=== PATIENT | female | born 1980 | race Caucasian/White ===

== ENCOUNTER 2016-08-14 18:40 | Emergency (ER) | payer MEDICAID ==
[2016-08-14] MEDS ORDERED: HYDROcod/ACETAM 5/325 MG TABLET PO STA (18:52)
[2016-08-14] MEDS ORDERED: HYDROcod/ACETAM 5/325 MG TABLET ONE (18:54)
== END 2016-08-14 20:05 | disposition home or self-care (01) ==
DX: S93.402A Sprain of unspecified ligament of left ankle, initial encounter (principal); W01.0XXA Fall on same level from slipping, tripping and stumbling without subsequent striking against object, initial encounter; R03.0 Elevated blood-pressure reading, without diagnosis of hypertension; G47.30 Sleep apnea, unspecified; K21.9 Gastro-esophageal reflux disease without esophagitis
CPT/HCPCS: 73610; 99283; A9270

== ENCOUNTER 2017-04-12 13:27 | Outpatient (CLI) | payer MEDICAID ==
[2017-04-12 20:04] LABS: BASOPHILS % (AUTO) 0.5 %; EOSINOPHILS # (AUTO) 0.1 10^3/uL (0.0-0.7); EOSINOPHILS % (AUTO) 0.6 %; HGB - HEMOGLOBIN 14.6 g/dL (12.0-16.0); LYMPHOCYTES # (AUTO) 2.6 10^3/uL (1.5-3.5); LYMPHOCYTES % (AUTO) 25.2 %; MEAN CORPUSCULAR HEMOGLOBIN 28.6 pg (27.0-31.0); MEAN CORPUSCULAR HGB CONC 32.4 g/dL (32.0-36.0); MEAN CORPUSCULAR VOLUME 88.3 fL (81.0-99.0); MEAN PLATELET VOLUME 8.9 fL (7.9-10.8); MONOCYTES # (AUTO) 0.6 10^3/uL (0.0-1.0); MONOCYTES % (AUTO) 6.2 %; NEUTROPHILS # (AUTO) 6.9 10^3/uL (1.5-6.6); NEUTROPHILS % (AUTO) 67.5 %; PLT - PLATELET COUNT 213 10^3/uL (130-450); WHITE BLOOD COUNT 10.2 x10^3/uL (4.8-10.8)
[2017-04-12 20:31] LABS: ALBUMIN 4.2 g/dL (3.2-5.5); ALBUMIN/GLOBULIN RATIO 1.5 (1.0-2.2); ALKALINE PHOSPHATASE 63 IU/L (42-121); ALT ALANINE AMINOTRANSFERASE 14 IU/L (10-60); AST ASPARTATE AMINOTRANSFERASE 16 IU/L (10-42); BILIRUBIN,TOTAL 0.5 mg/dL (0.2-1.0); BUN - BLOOD UREA NITROGEN 12 mg/dL (6-20); CALCIUM 8.4 mg/dL (8.5-10.3); CARBON DIOXIDE - CO2 20 mmol/L (21-32); CHLORIDE 105 mmol/L (101-111); CHOL/HDL RATIO 2.9 (<4.4); CHOLESTEROL 155 mg/dL; CREATININE 0.8 mg/dL (0.4-1.0); GFR - MDRD 81 (>89); GLUCOSE 94 mg/dL (70-100); HDL CHOLESTEROL 53 mg/dL; LDL CHOLESTEROL,CALCULATED 81 mg/dL; LDL/HDL RATIO 1.5 (<4.4); SODIUM 136 mmol/L (135-145); VLDL CHOLESTEROL 21 mg/dL
== END 2017-04-12 13:28 | disposition home or self-care (01) ==
LOC: LAB.N 13:27
PROVIDERS: ATTEND Family Medicine
DX: E78.5 Hyperlipidemia, unspecified (principal); F41.9 Anxiety disorder, unspecified; G43.909 Migraine, unspecified, not intractable, without status migrainosus
CPT/HCPCS: 36415; 80053; 80061; 85025

== ENCOUNTER 2018-10-01 11:08 | Outpatient (CLI) | payer MEDICAID | END 2018-10-01 11:09 | disposition short-term general hospital (02) | LOC: EMS 11:08 | PROVIDERS: ATTEND Surgery | DX: O26.92 Pregnancy related conditions, unspecified, second trimester (principal); Z3A.22 22 weeks gestation of pregnancy | CPT/HCPCS: A0425; A0429; A0999 ==

== ENCOUNTER 2022-01-02 18:32 | Emergency (ER) | payer MEDICAID ==
[2022-01-02 18:45] VITALS: BP 147/89
--- NOTE | 2022-01-02 18:53 | ED Physician Documentation ---
History of Present Illness - Stated complaint Stated Complaint: HIGH BP - Chief complaint Chief Complaint: General - History obtained from History obtained from: Patient - History of Present Illness Timing: Today Pain level max: 0 Pain level now: 0 - Additonal information Additional information: 41-year-old female approximately 35 weeks presents for elevated blood pressures at home. She is followed at the [facility] for her . She was apparently supposed to be registered as a OB patient but was registered as an ED patient accidentally. Review of Systems Constitutional: denies: Fever PD PAST MEDICAL HISTORY - Past Medical History Past Medical History: Yes Cardiovascular: None Respiratory: Sleep apnea, CPAP use Endocrine/Autoimmune: None GI: GERD : None HEENT: None Psych: Anxiety Musculoskeletal: None Derm: Eczema - Past Surgical History HEENT: Tonsil/Adenoidectomy - Present Medications Home Medications: Ambulatory Orders Medication Instructions Recorded Confirmed Omeprazole [PriLOSEC] 20 mg PO DAILY 09/02/12 01/02/22 Labetalol [Trandate] 100 mg PO BID 01/02/22 01/02/22 Omeprazole Magnesium 20 mg PO DAILY 01/02/22 01/02/22 Progesterone, Micronized 200 mg .ROUTE HS 01/02/22 01/02/22 [Prometrium] metFORMIN [Glucophage] 1,000 mg PO BIDWM 01/02/22 01/02/22 - Allergies Allergies/Adverse Reactions: Allergies Allergy/AdvReac Type Severity Reaction Status Date / Time morphine Allergy Intermediate Hives Verified 01/02/22 18:38 Sulfa (Sulfonamide Allergy Intermediate Hives Verified 01/02/22 18:38 Antibiotics) - Social History Does the pt smoke?: No Smoking Status: Never smoker PD ED PE NORMAL - Vitals Vital signs reviewed: Yes - General General: Alert and oriented X 3, No acute distress - Derm Derm: Warm and dry - Neuro Neuro: Alert and oriented X 3 Results - Vitals Vitals: Vital Signs - 24 hr 01/02/22 18:38 Temperature 36.5 C Heart Rate 99 Respiratory 22 Rate Blood Pressure 147/89 H O2 Saturation 97 Oxygen O2 Source Room air PD MEDICAL DECISION MAKING - ED course Complexity details: considered differential ED course: Discussed the case with Dr. Rothman, OB. We will send the patient to OB for further care of her preeclampsia. This document was made in part using voice recognition software. While efforts are made to proofread this document, sound alike and grammatical errors may occur. Departure - Departure Disposition: 01 Home, Self Care Clinical Impression: Pre-eclampsia Qualifiers: Trimester: third trimester Qualified Code(s): O14.93 - Unspecified pre- eclampsia, third trimester Condition: Stable Comments: Patient was sent directly to OB
== END 2022-01-02 19:18 | disposition home or self-care (01) ==
LOC: ED 18:32
DX: O14.93 Unspecified pre-eclampsia, third trimester (principal); Z3A.35 35 weeks gestation of pregnancy
CPT/HCPCS: 99281; 99282

== ENCOUNTER 2022-01-02 18:55 | Outpatient (CLI) | payer MEDICAID ==
--- NOTE | 2022-01-02 19:25 | PROVIDER PROGRESS NOTE ---
- HPI Chief Complaint: Hypertension/PIH Current : Vital Signs Temperature 98.8 F 01/02/22 19:11 Heart Rate 95 01/02/22 19:11 Respiratory Rate 24 01/02/22 19:11 Blood Pressure 139/66 H 01/02/22 19:11 O2 Saturation 99 01/02/22 19:11 - Procedures OB Procedure Performed: NST Diagnosis/Indication for NST: Gestational Hypertension NST Procedure: NST Procedure Start Date 01/02/22 Start Time 19:10 Stop Time 20:10 Vibroacoustic Stimulation Used No Patient States Movement Yes Service Date of procedure: 01/02/22 (Read 01/02/2022) - Plan Plan: Patient is a 41-year-old -4-1-4 At 35 weeks 2 days gestation by 20-week ultrasound (JENNIFER: 02/04/2022) presenting to triage for elevated blood pressure. She developed preeclampsia and was started on labetalol, currently 100 mg 3 times daily. Blood pressure up to the 140s over 100s at home and she was asked to come in. Blood pressures here in the 130s-140s/60s-70s. Did have a protein creatinine ratio of 0.7 previously. Serum labs were within normal limits. She has good movement, no leaking, no vaginal bleeding. She denies headache, right upper quadrant pain, changes in vision. Denies dysuria. She is seen by [facility] and gets her care there for high risk . She has had multiple cerclages previously, and she says this is the first one that has held. Does have significant lower extremity edema has been gone for several weeks. On review of records, had a recent venous Doppler that showed no DVTs. Has had swelling with each , but never this severe. Patient denies other issues, however review of records shows she has gestational diabetes taking metformin 1000 mg twice daily. OB history: -4-1-1 1. 2002, 18 weeks 5 days, spontaneous previable delivery 2. 2003, 24 weeks 0 days, 3. 2005, 22 weeks 0 days, 4. 2007, 21 weeks 0 days, , chorioamnionitis 5. 2018, 23 weeks 0 days, classical section 6. Current Past medical history Denies significant medical history, however upon review rest periods has a following history Bipolar disorder History of traumatic brain injury History of marijuana use Vulvovaginal HSV GBS strep carrier Gestational diabetes Past surgical history Cervical conization section Cervical cerclage Family history Noncontributory Social history Smokes 1/2 pack/day, denies alcohol or drugs Allergies: Sulfa Morphine Adhesives Latex Medications: vitamins Labetalol 100 mg 3 times daily Metformin 1000 mg twice daily Progesterone 200 mg vaginally Physical Constitutional: alert, no acute distress, well hydrated, well developed, well nourished, appropriate dress. Cardiovascular: Regular rate and rhythm. Respiratory: Easily short of breath. Inspiratory and expiratory wheezes. Abdomen: abdominal striae with edema. Gravid, nontender, no guarding. Psych: affect and mood appropriate, normal interaction, good eye contact. Extremities: 2+ pitting edema bilaterally NST: 145 bpm baseline, moderate variability, accelerations present, no decelerations. [place]: Quiescent Labs: AST/ALT: 17/19, platelets: 217, creatinine: 0.5, protein/creatinine: 0.2 Assessment and plan 41-year-old -4-1-4 with gestational hypertension 1. Preeclampsia: -Blood pressure non-severe. Labs within normal limits, however slightly elevated protein creatinine ratio 0.2, but below threshold. Previously 0.7 at her primary OB provider. No symptoms of worsening preeclampsia. 2. 35 weeks gestation -Has appointment at [facility] tomorrow. Says she has a 36-week scheduled section scheduled next week 3. Lower extremity edema -Significant lower extremity edema, has been present for several weeks. Extends to her abdomen and her striae. Not a new symptom for her. -Had bilateral venous Dopplers on 12/27/21 without DVT. 4. Tobacco abuse -Has cut back, but still smoking approximately 1/2 pack/day 5. Cervical incompetence -Cerclage in place 6. Obesity 7. Elderly multigravida 8. Vulvovaginal HSV 9. A2 GDM managed with oral antihyperglycemic's -On home oral metformin 1000 mg twice daily 10. GBS carrier -UA shows some bacteria. We will follow-up on culture. Asymptomatic. 11.Previous vertical section x1 -Repeat section scheduled next week. No contractions. Cerclage in place.
[2022-01-02 19:32] LABS: HCT - HEMATOCRIT 29.6 % (37.0-47.0); HGB - HEMOGLOBIN 9.6 g/dL (12.0-16.0); MEAN CORPUSCULAR HEMOGLOBIN 26.9 pg (27.0-31.0); MEAN CORPUSCULAR HGB CONC 32.4 g/dL (32.0-36.0); MEAN CORPUSCULAR VOLUME 82.9 fL (81.0-99.0); MEAN PLATELET VOLUME 9.9 fL (7.9-10.8); RED BLOOD COUNT 3.57 10^6/uL (4.20-5.40); RED CELL DISTRIBUTION WIDTH 14.7 % (12.0-15.0); WHITE BLOOD COUNT 14.2 x10^3/uL (4.8-10.8)
[2022-01-02 19:49] LABS: ALBUMIN 2.5 g/dL (3.2-5.5); ALBUMIN/GLOBULIN RATIO 0.8 (1.0-2.2); BILIRUBIN,TOTAL 0.2 mg/dL (0.2-1.0); CALCIUM 8.8 mg/dL (8.5-10.3); CREATININE 0.5 mg/dL (0.4-1.0); POTASSIUM 3.9 mmol/L (3.5-5.0); TOTAL PROTEIN 5.8 g/dL (6.7-8.2)
[2022-01-02 20:13] LABS: BILIRUBIN,URINE NEGATIVE (NEGATIVE); GLUCOSE, URINE (UA) NEGATIVE (NEGATIVE); KETONES,URINE (UA) NEGATIVE (NEGATIVE); LEUKOCYTE ESTERASE, URINE LARGE (NEGATIVE); NITRITE,URINE NEGATIVE (NEGATIVE); OCCULT BLOOD,URINE TRACE-INTA (NEGATIVE); PROTEIN,URINE NEGATIVE (NEGATIVE); UROBILINOGEN,URINE 0.2 (NORMAL) E.U./dL (NORMAL)
[2022-01-02 20:14] LABS: CLARITY,URINE HAZY (CLEAR); RBC,URINE 0-5 /HPF (0-5); SQUAMOUS EPITHELIAL CELL,UR FEW Squamous (<= Few); WBC,URINE >25 /HPF (0-5)
[2022-01-02 20:15] LABS: BACTERIA,URINE Many /HPF (None Seen); CREATININE,URINE 103.8 mg/dL; PROTEIN/CREATININE RATIO,URINE 0.2 (<=0.2)
[2022-01-02 20:42] VITALS: BP 131/64
== END 2022-01-02 20:50 | disposition home or self-care (01) ==
LOC: WFO 18:55 → FBP 18:58 → WFO 20:50
PROVIDERS: ATTEND Obstetrics & Gynecology
DX: O14.03 Mild to moderate pre-eclampsia, third trimester (principal); Z3A.35 35 weeks gestation of pregnancy; O99.333 Smoking (tobacco) complicating pregnancy, third trimester; F17.210 Nicotine dependence, cigarettes, uncomplicated; O12.03 Gestational edema, third trimester; O34.33 Maternal care for cervical incompetence, third trimester; O99.820 Streptococcus B carrier state complicating pregnancy; O24.415 Gestational diabetes mellitus in pregnancy, controlled by oral hypoglycemic drugs; O98.313 Other infections with a predominantly sexual mode of transmission complicating pregnancy, third trimester; A60.04 Herpesviral vulvovaginitis; O99.343 Other mental disorders complicating pregnancy, third trimester; F31.9 Bipolar disorder, unspecified; O99.213 Obesity complicating pregnancy, third trimester; O09.523 Supervision of elderly multigravida, third trimester; O34.219 Maternal care for unspecified type scar from previous cesarean delivery
CPT/HCPCS: 36415; 59025; 80053; 81001; 82570; 84156; 85027; 87086; 99215

== ENCOUNTER 2022-01-04 07:49 | Outpatient (CLI) | payer MEDICAID | END 2022-01-04 07:50 | disposition critical access hospital (66) | LOC: EMS 07:49 | DX: O60.00 Preterm labor without delivery, unspecified trimester (principal) | CPT/HCPCS: A0425; A0429; A0999 ==

== ENCOUNTER 2022-01-04 08:10 | Inpatient (IN) | payer MEDICAID ==
--- NOTE | 2022-01-04 08:27 | HISTORY & PHYSICAL EXAMINATION ---
Admit History - Visit Reason Visit Reason: Contractions, Membranes rupture - : 6 Premature: 4 : 1 Care: positive: Other ([facility]) Complications This : positive: Treated for GBS/UTI, Gestational diabetes, Pre-eclampsia Smoking Status: Current every day smoker - Mother's Labs Mother's Blood Type: positive: O Mother's RH: positive: Positive GBS: positive: Group B Strep Positive - Other Maternal History Other Maternal History: Patient is a 41-year-old -4-1-1 at 35 weeks 4 days gestation by 20-week ultrasound (JENNIFER: 02/04/2022) who presents today with leaking of fluid and contractions. She does get her care at [facility]. She said she woke up earlier this morning and stood up and had a leak of fluid. She believes this was around 0700. She is having contractions every several minutes although she is not timing them. Does have a cerclage in place for history of multiple deliveries. complicated by preeclampsia without severe features and is taking labetalol, currently 100 mg 3 times daily. Also has gestational diabetes managed with metformin 1000 mg twice daily. She does not take any medications this morning. Blood pressures have been nonsevere. Denies headache, vision changes, right upper quadrant pain. No vaginal bleeding. OB history: -4-1-1 1. 2002, 18 weeks 5 days, spontaneous previable delivery 2. 2003, 24 weeks 0 days, 3. 2005, 22 weeks 0 days, 4. 2007, 21 weeks 0 days, , chorioamnionitis 5. 2018, 23 weeks 0 days, classical section 6. Current Past medical history Bipolar disorder History of traumatic brain injury History of marijuana use Vulvovaginal HSV GBS strep carrier Gestational diabetes Past surgical history Cervical conization section Cervical cerclage Family history Noncontributory Social history Smokes 1/2 pack/day, denies alcohol or drugs Allergies: Sulfa Morphine Adhesives Latex Medications: vitamins Labetalol 100 mg 3 times daily Metformin 1000 mg twice daily Progesterone 200 mg vaginally Physical Constitutional: alert, no acute distress, well hydrated, well developed, well nourished, appropriate dress. Cardiovascular: Regular rate and rhythm. Respiratory: Easily short of breath. Inspiratory and expiratory wheezes. Abdomen: abdominal striae with edema. Gravid, nontender, no guarding. Psych: affect and mood appropriate, normal interaction, good eye contact. Extremities: 2+ pitting edema bilaterally n SVE: Fingertip (Cerclage palpated near distal cervix)/50/ -3 FHT:135 bpm baseline, moderate variability, accelerations preent, no decelerations [place]:Every 5-6 minutes Labs: Platelets: 245, AST/ALT: 19/19, Creatinine: 0.5, Protein to creatinine ratio: 0.2. ROM plus: Negative Assessment and plan 41-year-old -4-1-1 with labor 1. labor -Currently michael approximately every 5-6 minutes. Should move to delivery. -Spoke with [facility] regarding tocolysis and transport vs here. Will plan on performing repeat locally. High likelihood of transport. -Category 1 tracing 2.Previous classical section x1 -Plan for repeat section -3 grams cefazolin 3. Preeclampsia without severe features: -Blood pressure non-severe. Will give AM dose of labetolol. -Labs within normal limits 4. 35 weeks gestation -Will hold late steroids due to gestational diabetes 5. Lower extremity edema -Significant lower extremity edema, has been present for several weeks. Extends to her abdomen and her striae. Not a new symptom for her. -Had bilateral venous Dopplers on 12/27/21 without DVT. 6. Tobacco abuse -Has cut back, but still smoking approximately 1/2 pack/day 7. Cervical incompetence -Cerclage in place. Will remove after surgery 8. Obesity 9. 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 A2 GDM managed with oral antihyperglycemic's -On home oral metformin 1000 mg twice daily. No meds today. 12. GBS carrier Meds/Allgy - Home Medications Home Medications: Ambulatory Orders Medication Instructions Recorded Confirmed Omeprazole [PriLOSEC] 20 mg PO DAILY 09/02/12 01/02/22 Labetalol [Trandate] 100 mg PO BID 01/02/22 01/02/22 Omeprazole Magnesium 20 mg PO DAILY 01/02/22 01/02/22 Progesterone, Micronized 200 mg .ROUTE HS 01/02/22 01/02/22 [Prometrium] metFORMIN [Glucophage] 1,000 mg PO BIDWM 01/02/22 01/02/22 - Allergies Allergies/Adverse Reactions: Allergies Allergy/AdvReac Type Severity Reaction Status Date / Time morphine Allergy Intermediate Hives Verified 01/02/22 18:38 Sulfa (Sulfonamide Allergy Intermediate Hives Verified 01/02/22 18:38 Antibiotics) Physical - Abdominal Exam Vital Signs: Temp Pulse Resp BP Pulse Ox O2 Flow Rate 82 18 155/90 H 97 01/04/22 08:19 01/04/22 08:19 01/04/22 08:19 01/04/22 08:19
[2022-01-04 08:40] LABS: BASOPHILS % (AUTO) 0.3 %; EOSINOPHILS # (AUTO) 0.1 10^3/uL (0.0-0.7); EOSINOPHILS % (AUTO) 0.9 %; HCT - HEMATOCRIT 32.6 % (37.0-47.0); HGB - HEMOGLOBIN 10.5 g/dL (12.0-16.0); LYMPHOCYTES # (AUTO) 1.9 10^3/uL (1.5-3.5); LYMPHOCYTES % (AUTO) 12.6 %; MEAN CORPUSCULAR HEMOGLOBIN 26.9 pg (27.0-31.0); MEAN CORPUSCULAR HGB CONC 32.2 g/dL (32.0-36.0); MEAN CORPUSCULAR VOLUME 83.4 fL (81.0-99.0); MEAN PLATELET VOLUME 10.5 fL (7.9-10.8); MONOCYTES # (AUTO) 0.9 10^3/uL (0.0-1.0); MONOCYTES % (AUTO) 6.2 %; NEUTROPHILS # (AUTO) 11.9 10^3/uL (1.5-6.6); NEUTROPHILS % (AUTO) 79.1 %; PLT - PLATELET COUNT 245 10^3/uL (130-450); RED BLOOD COUNT 3.91 10^6/uL (4.20-5.40); RED CELL DISTRIBUTION WIDTH 15.1 % (12.0-15.0); WHITE BLOOD COUNT 15.1 x10^3/uL (4.8-10.8)
[2022-01-04 08:50] LABS: ALBUMIN 2.7 g/dL (3.2-5.5); ALBUMIN/GLOBULIN RATIO 0.8 (1.0-2.2); BILIRUBIN,TOTAL 0.4 mg/dL (0.2-1.0); CREATININE 0.5 mg/dL (0.4-1.0); CREATININE,URINE 100.7 mg/dL; POTASSIUM 4.1 mmol/L (3.5-5.0); PROTEIN/CREATININE RATIO,URINE 0.2 (<=0.2); TOTAL PROTEIN 6.1 g/dL (6.7-8.2)
[2022-01-04 08:57] LABS: RUPTURE OF MEMBRANES PLUS NEGATIVE (NEGATIVE)
[2022-01-04] MEDS ORDERED: LACTATED RINGERS 500 ML IV ONE (09:23)
[2022-01-04] MEDS ORDERED: LACTATED RINGERS 1,000 ML ONE (09:33)
[2022-01-04] MEDS ORDERED: LACTATED RINGERS 1,000 ML IV SCH ×3 (10:00→13:00)
[2022-01-04] MEDS ORDERED: ONDANSETRON 4 MG/2 ML VIAL ONE (10:19)
[2022-01-04] MEDS ORDERED: OXYTOCIN 10 UNIT/ML VIAL ONE (10:19)
[2022-01-04] MEDS ORDERED: PHENYLEPHRINE 10 MG/ML VIAL ONE (10:53)
[2022-01-04] MEDS ORDERED: fentaNYL 100 MCG/2 ML VIAL ONE (11:18)
--- NOTE | 2022-01-04 11:24 | ANESTHESIA ---
Pre-Anesthesia VS, & Labs Height: 5 ft 4 in Weight (kg): 118.388 kg Body Mass Index: 44.8 BMI Classification: Morbidly Obese - NPO >8 hours - Is Patient ?: Yes - Lab Results Fish Bones: 01/04/22 08:31 01/04/22 08:31 <Fay Hernandez - Last Filed: 01/04/22 11:25> - Lab Results Fish Bones: 01/04/22 08:31 01/04/22 08:31 <Kayleen Llamas - Last Filed: 01/04/22 13:40> - Diagnosis repeat section (Fay Hernandez) - Procedure repeat section (Fay Hernandez) Vital Signs: Temp Pulse Resp BP Pulse Ox O2 Flow Rate 36.4 C L 104 H 26 H 126/78 95 01/04/22 13:06 01/04/22 13:06 01/04/22 13:06 01/04/22 13:06 01/04/22 13:06 - Lab Results Current Lab Results: Laboratory Tests 01/04/22 08:56: Blood Type Recheck O POSITIVE 01/04/22 08:31: Sodium 137, Potassium 4.1, Chloride 105, Carbon Dioxide 22, Anion Gap 10.0, BUN 10, Creatinine 0.5, Estimated GFR (MDRD) 136, Glucose 104 H, Calcium 9.0, Total Bilirubin 0.4, AST 19, ALT 19, Alkaline Phosphatase 120, Total Protein 6.1 L, Albumin 2.7 L, Globulin 3.4, Albumin/Globulin Ratio 0.8 L 01/04/22 08:31: WBC 15.1 H, RBC 3.91 L, Hgb 10.5 L, Hct 32.6 L, MCV 83.4, MCH 26.9 L, MCHC 32.2, RDW 15.1 H, Plt Count 245, MPV 10.5, Neut # (Auto) 11.9 H, Lymph # (Auto) 1.9, Mckenzie # (Auto) 0.9, Eos # (Auto) 0.1, Baso # (Auto) 0.0, Absolute Nucleated RBC 0.00, Nucleated RBC % 0.0 01/04/22 08:31: Blood Type O POSITIVE, Antibody Screen NEGATIVE Home Medications and Allergies <Fay Hernandez - Last Filed: 01/04/22 11:25> <Kayleen Llamas - Last Filed: 01/04/22 13:40> Active Medications Acetaminophen (Acetaminophen 500 Mg Tablet) 1,000 mg PO Q8H [facility] Atropine Sulfate (Atropine Abboject 1 Mg/10 Ml Syringe) 0.5 mg IVP Q5M PRN PRN Reason: Bradycardia Stop: 01/05/22 12:04 Diphenoxylate HCl/Atropine (Diphenox/Atropine 2.5/0.025 Mg Tablet) 1 tab PO QID PRN PRN Reason: Diarrhea Docusate Sodium (Docusate Sodium 100 Mg Capsule) 100 mg PO BID [facility] Ephedrine Sulfate (Ephedrine 50 Mg/Ml Vial) 10 mg IVP Q5M PRN PRN Reason: HYPOTENSION Stop: 01/05/22 12:04 Fentanyl (Fentanyl 100 Mcg/2 Ml Vial) 25 - 50 mcg IVP Q5M PRN PRN Reason: BREAKTHROUGH PAIN (2nd Choice) Stop: 01/05/22 12:04 Hydromorphone HCl (Hydromorphone 0.5 Mg/0.5 Ml Syringe) 0.2 - 0.6 mg IVP Q5M PRN PRN Reason: PAIN (First Choice) Stop: 01/05/22 12:04 Lactated Ringer's (Lr) 1,000 mls @ 125 mls/hr IV .Q8H [facility] Cefazolin Sodium 3 gm/ Sodium (Chloride) 50 mls @ 100 mls/hr IV Q8H [facility] Last Admin: 01/04/22 09:46 Dose: 100 mls/hr Lactated Ringer's (Lr) 1,000 mls @ 100 mls/hr IV .Q10H [facility] Stop: 01/04/22 22:59 Lactated Ringer's (Lr) 1,000 mls @ 100 mls/hr IV .Q10H [facility] Oxytocin/Sodium Chloride (Pitocin/Sodium Chloride) 500 mls @ 999 mls/hr IV PRN PRN; Protocol PRN Reason: POST- HEMORR PREVENTION Ibuprofen (Ibuprofen 600 Mg Tablet) 600 mg PO Q6H [facility] Ketorolac Tromethamine (Ketorolac 30 Mg/Ml Vial) 30 mg IVP Q6H [facility] Stop: 01/05/22 07:01 Labetalol HCl (Labetalol 100 Mg Tablet) 100 mg PO TID ERIK Metoclopramide HCl (Metoclopramide 10 Mg/2 Ml Vial) 10 mg IVP Q6HR PRN PRN Reason: N/V not relieved by Zofran Naloxone HCl (Naloxone 0.4 Mg/Ml Vial) 0.1 mg IVP Q2M PRN PRN Reason: RESP RATE <8 Stop: 01/05/22 12:04 Ondansetron HCl (Ondansetron 4 Mg/2 Ml Vial) 4 mg IVP ONCE PRN PRN Reason: N/V (First Choice) Stop: 01/05/22 12:04 Ondansetron HCl (Ondansetron Odt 4 Mg Tablet) 4 mg TL Q4H PRN PRN Reason: Nausea / Vomiting Oxycodone HCl (Oxycodone 5 Mg Tablet) 5 mg PO Q4HR PRN PRN Reason: PAIN Simethicone (Simethicone Chew 80 Mg Tablet) 80 mg PO TID PRN PRN Reason: Gas Sodium Chloride (Sodium Chloride Flush 0.9% 10 Ml Syringe) 10 ml IVP 0100,0900,1700 ERIK Sodium Chloride (Sodium Chloride Flush 0.9% 10 Ml Syringe) 10 ml IVP PRN PRN PRN Reason: NEEDED PER PROVIDER ORDERS Omeprazole [PriLOSEC] 20 mg PO DAILY 09/02/12 Labetalol [Trandate] 100 mg PO BID 01/02/22 Omeprazole Magnesium 20 mg PO DAILY 01/02/22 Progesterone, Micronized [Prometrium] 200 mg .ROUTE HS 01/02/22 metFORMIN [Glucophage] 1,000 mg PO BIDWM 01/02/22 Allergies/Adverse Reactions: Allergies Allergy/AdvReac Type Severity Reaction Status Date / Time morphine Allergy Intermediate Hives Verified 01/02/22 18:38 Sulfa (Sulfonamide Allergy Intermediate Hives Verified 01/02/22 18:38 Antibiotics) Anes History & Medical History - Anesthetic History Anesthesia Complications: reports: No previous complications - Medical History Cardiovascular: reports: None Pulmonary: reports: Sleep apnea, CPAP use Gastrointestinal: reports: GERD Urinary: reports: None Musculoskeletal: reports: None Endocrine/Autoimmune: reports: None Skin: reports: Eczema Smoking Status: Current every day smoker - Surgical History Eyes Ears Nose Throat (EENT): reports: Tonsil/Adenoidectomy - Obstetrical History : 6 Complications: reports: Treated for GBS/UTI, Gestational diabetes, Pre -eclampsia <Fay Hernandez - Last Filed: 01/04/22 11:25> Exam General: Alert, Oriented x3, Mild distress Dental: Loose/Frag (right front loose) Mallampati classification: III Respiratory: Lungs clear Cardiovascular: Regular rate <Fay Hernandez - Last Filed: 01/04/22 11:25> Plan Anesthesia Type: Spinal, Transverse Abdominis Plane (TAP) Block Consent for Procedure(s) Verified and Reviewed: Yes Code Status: Attempt Resuscitation ASA classification: 3-Severe systemic disease Is this case an emergency?: Yes <Fay Hernandez - Last Filed: 01/04/22 11:25>
[2022-01-04] MEDS ORDERED: CARBOPROST TROMETHAMINE 250 MCG/ML AMP IM ONE (11:33)
[2022-01-04] MEDS ORDERED: HYDROmorphone 1 MG/ML CARPUJECT ONE ×2 (11:40→11:52)
[2022-01-04] MEDS ORDERED: KETAMINE 500 MG/10 ML VIAL ONE (11:43)
[2022-01-04] MEDS ORDERED: MIDAZOLAM 2 MG/2 ML VIAL ONE (11:49)
[2022-01-04] MEDS ORDERED: ROPIVACAINE 0.5% PF 20 ML VIAL ONE (11:58)
[2022-01-04] MEDS ORDERED: DEXAMETHASONE 4 MG/ML VIAL ONE (11:58)
[2022-01-04] MEDS ORDERED: METOCLOPRAMIDE 10 MG/2 ML VIAL IVP PRN (12:03)
[2022-01-04] MEDS ORDERED: ePHEDrine 50 MG/ML VIAL IVP PRN (12:03)
[2022-01-04] MEDS ORDERED: HYDROmorphone 0.5 MG/0.5 ML SYRINGE IVP PRN (12:03)
[2022-01-04] MEDS ORDERED: ONDANSETRON 4 MG/2 ML VIAL IVP PRN (12:03)
[2022-01-04] MEDS ORDERED: NALOXONE 0.4 MG/ML VIAL IVP PRN (12:03)
[2022-01-04] MEDS ORDERED: fentaNYL 100 MCG/2 ML VIAL IVP PRN (12:03)
[2022-01-04] MEDS ORDERED: ATROPINE ABBOJECT 1 MG/10 ML SYRINGE IVP PRN (12:03)
[2022-01-04] MEDS ORDERED: SODIUM CHLORIDE 0.9% 10 ML VIAL IVP ONE (12:18)
[2022-01-04] MEDS ORDERED: SODIUM CHLORIDE FLUSH 0.9% 10 ML SYRINGE IVP PRN (12:22)
[2022-01-04] MEDS ORDERED: OXYTOCIN/SODIUM CHLORIDE 500 ML IV PRN (12:22)
[2022-01-04] MEDS ORDERED: DIPHENOX/ATROPINE 2.5/0.025 MG TABLET PO PRN (12:22)
[2022-01-04] MEDS ORDERED: ONDANSETRON ODT 4 MG TABLET TL PRN (12:22)
--- NOTE | 2022-01-04 12:32 | OPERATIVE REPORT ---
Operative Report - General Admit Date: 01/04/22 Procedure Date: 01/04/22 Planned Procedure: Repeat section Cerclage removal Pre-Op Diagnosis: labor, previous section, Preeclampsia Procedure Performed: Repeat low-transverse section Cerclage removal Post Op Diagnosis: Same - Procedure Note Primary Surgeon: Jacobo Rothman MD Secondary Surgeon: Fatou Ramirez MD Anesthesia Provider: Kayleen Llamas CRNA Anesthesia Technique: Spinal Pathology: None IV Fluids (mL): 2,000 Estimated Blood Loss (mL): 800 Urine Output (mL): 200 Complications: None - Other Other Information/Narrative: Patient history: Patient is a 41-year-old -4-1-1 at 35 weeks 4 days gestation who presented this morning with labor. She was managed by [facility] and had a cerclage for cervical incompetence and multiple previable deliveries. She was michael approximate every 5 minutes this morning with category 1 tracing. We attempted to transfer to higher level of care, but due to her history of multiple deliveries, cervical cerclage with tension, and labor, decision made to proceed with section here. section was recommended. Risks, benefits and alternatives were discussed including but not limited to infection, bleeding that may require blood products or hysterectomy for life saving measures, injury to surrounding organs including but not limited to bowel, bladder, ureters, tubes and ovaries and/or the baby. Should injury occur it could require longer/additional surgery to repair. The patient stated understanding and desired to proceed. All questions were answered posed by patient. Prior to being taken to the OR, 3 grams of cefazolin IV was administered. The patient was taken to the operating room where regional anesthesia was found to be adequate. She was then prepared and draped in the usual sterile fashion in the dorsal supine position with a leftward tilt displacing the uterus. Castrejon was draining to gravity. SCDs were on bilateral lower extremities. A pfannenstiel skin incision was then made with the scalpel and carried through to the underlying layer of fascia. The fascia was incised in the midline and the incision extended laterally with the Garcia scissors. The superior aspect of the facial incision was then grasped with the Tj clamps, elevated and the underlying rectus muscles dissected off sharply. Attention was then turned to the inferior aspect of this incision which in a similar fashion was grasped, elevated with the Tj clamps and the rectus muscle dissected off sharply. The rectus muscles were in the midline. The peritoneum identified, grasped with the pick-ups and entered sharply with the Metzenbaum scissors. The peritoneal incision was then extended superiorly and inferiorly with good visualization of the bladder. The bladder blade was inserted. Attempt was made to make a bladder flap, however the peritoneum was thick so this was abandoned. The lower uterine segment was identified and incised in a transverse fashion with the scalpel. The uterine incision was then extended bluntly laterally. Artificial rupture of membranes demonstrated clear fluid. The bladder blade was removed. The fetus was in a cephalic presentation. The infants head delivered atraumatically. The anterior shoulders were delivered followed by the posterior shoulders then the remainder of the body. The infants mouth and nose were bulb suctioned. The umbilical cord was clamped times two and cut. The was handed to the pediatric team. had Apgars of 3/5/8 Cord blood gases were obtained. The placenta was removed with gentle traction. Oxytocin were added to IVF and allowed to run freely. The uterus was exteriorized and cleared of all clots and debris. The uterine incision was inspected and found to have a midline extension approximately 3 cm. This was repaired with 2 0 Vicryl sutures in a running, locked fashion. A second imbricating layer was performed. 2 additional [id number] stitches were required to stop the bleeding. Upon inspection, the repaired hysterotomy was found to be hemostatic. The uterus had some intermittent bogginess, so the patient received 250 mcg of carboprost. The uterus was firm and returned to the abdomen. The gutters were cleared of all clots and debris. The patient was anxious due to the procedure and the due to the difficulty keeping the bowels inside the body, the patient received ketamine, and a fish retractor was used to hold the bowel in place as the fascia was closed. The fascia was reapproximated with 0 Vicryl in a running fashion. The subcutaneous tissue was closed with 2-0 Vicryl. The skin was closed in a subcuticular fashion with 4-0 Monocryl. Steri-Strips were used to cover the incision. The patient was then placed in dorsal high lithotomy position and a bivalve speculum was used to visualize the cervix. A Mersilene tape cerclage was seen with a knot at 6:00. Suture scissors were used to cut the suture and remove the cerclage. The patient tolerated the procedure well. Sponge, lap and needle counts were correct times three. The patient was taken to the recovery room in stable condition. I appreciate the assistance of Dr. Ramirez during this procedure, and the ass istance in retraction, visualization, dissection, and overall assistance during the case were instrumental to the patient's wellbeing.
[2022-01-04] MEDS ORDERED: LACTATED RINGERS 1,000 ML IV ONE (12:39)
--- NOTE | 2022-01-04 13:40 | ANESTHESIA POST OP EVALUATION ---
Anesthesia Post Eval - Post Anesthesia Eval Vitals: Last Vital Signs Temp 36.4 C L 01/04/22 13:06 Pulse 104 H 01/04/22 13:06 Resp 26 H 01/04/22 13:06 BP 126/78 01/04/22 13:06 Pulse Ox 95 01/04/22 13:06 O2 Flow Rate CV Function Including HR & BP: Stable Pain Control: Satisfactory Nausea & Vomiting: Negative Mental Status: Baseline Respiratory Status: Airway Patent Hydration Status: Satisfactory Anesthesia Complications: None
[2022-01-04] MEDS: KETOROLAC 30 MG/ML VIAL IVP SCH ×2 (14:11→20:01)
[2022-01-04] MEDS: LABETALOL 100 MG TABLET PO SCH ×2 (15:51→22:02)
[2022-01-04] MEDS ORDERED: SODIUM CHLORIDE FLUSH 0.9% 10 ML SYRINGE IVP SCH (17:00)
[2022-01-04] MEDS: ACETAMINOPHEN 500 MG TABLET PO SCH (18:35)
[2022-01-04] MEDS: DOCUSATE SODIUM 100 MG CAPSULE PO SCH (21:00)
[2022-01-04] MEDS: oxyCODONE 5 MG TABLET PO PRN (21:49)
[2022-01-05] MEDS: ACETAMINOPHEN 500 MG TABLET PO SCH ×3 (03:59→20:06)
[2022-01-05] MEDS: KETOROLAC 30 MG/ML VIAL IVP SCH ×2 (04:01→09:49)
[2022-01-05 05:23] LABS: BASOPHILS % (AUTO) 0.3 %; HGB - HEMOGLOBIN 7.6 g/dL (12.0-16.0); LYMPHOCYTES % (AUTO) 5.8 %; MEAN CORPUSCULAR HEMOGLOBIN 27.3 pg (27.0-31.0); MEAN CORPUSCULAR VOLUME 82.7 fL (81.0-99.0); MEAN PLATELET VOLUME 10.3 fL (7.9-10.8); MONOCYTES % (AUTO) 2.9 %; NEUTROPHILS % (AUTO) 90.1 %; PLT - PLATELET COUNT 232 10^3/uL (130-450); RED BLOOD COUNT 2.78 10^6/uL (4.20-5.40); RED CELL DISTRIBUTION WIDTH 14.9 % (12.0-15.0); WHITE BLOOD COUNT 24.8 x10^3/uL (4.8-10.8)
[2022-01-05 05:33] LABS: ABNORMAL LYMPHS % (MANUAL) 0 %
[2022-01-05 05:52] LABS: BAND NEUTROPHILS % (MANUAL) 9 %; BASOPHILS # (MANUAL) 0.2 10^3/uL (0-0.1); BASOPHILS % (MANUAL) 1 %; DIFFERENTIAL COMMENT MANUAL DIFFERENTIAL; LYMPHOCYTES # (MANUAL) 1.7 10^3/uL (1.5-3.5); LYMPHOCYTES % (MANUAL) 7 %; MONOCYTES # (MANUAL) 0.7 10^3/uL (0.0-1.0); NEUTROPHILS # (MANUAL) 22.1 10^3/uL (1.5-6.6); PLATELET ESTIMATE, MANUAL NORMAL (130-450,000) (NORMAL); RBC MORPHOLOGY (MULTIPLE) NORMAL APPEARANCE (NORMAL)
[2022-01-05] MEDS: LABETALOL 100 MG TABLET PO SCH ×3 (06:28→22:13)
[2022-01-05] MEDS: DOCUSATE SODIUM 100 MG CAPSULE PO SCH ×2 (09:49→22:12)
--- NOTE | 2022-01-05 11:27 | PROVIDER PROGRESS NOTE ---
Subjective - Prog Note Date Prog Note Date: 01/05/22 - Subjective Pt reports feeling: Improved Subjective: Subjective Patient reports she is doing well. Lochia appropriate. Denies heavy bleeding. Ambulating. Pelvic and abdominal pain well-controlled. Tolerating oral intake. Diet: Regular. Voiding without difficulty. Passing flatus. Denies BM. Patient is bonding with baby in room Breast feeding going well. Denies feeling lightheaded, dizzy or excessively fatigued. Control: Considering Nexplanon versus IUD versus partner vasectomy Objective General: Alert, oriented, no apparent distress. Cardiovascular: Regular rate. Regular rhythm. Lungs: No increased work of breathing. Inspiratory and expiratory wheezes. Abdomen: Uterus firm. Below mbilicus. No guarding or rebound. Swelling mildly improved Incision: Clean, dry, and intact. Extremities: 2+ edema, but bandages removed Assessment and Plan Status post repeat low transverse section day 1. -Routine care -Anticipate discharge in 1 to 2 days -Plan to follow up in one week with [facility]. Can follow up with me, Dr. Reaves in [place], or [facility] for longer care if desired, but I would appreciate seeing her postop. A2 Gestational diabetes: Fasting glucose tomorrow. Metformin stopped Preeclampsia without severe features -Blood pressure well controlled currently 118/50. Up to 140s over 60s. -We will continue labetalol at this point, but assess over the coming days. High risk social situation -guest services assistant consult completed -Patient planning on taking the bus frequently. -Denied home nurse visit, but will have telehealth versus out side visit. -Will help arrange PCP visit Sleep Apnea -Patient has cpap at home, but no supplies for a long time. Will follow up as an outpatient. Lower extremity edema -Will continue to monitor resolution Tobacco abuse -nicotine patch if requested. Objective - Vital Signs/Intake & Output Vital Signs: Vital Signs x48h Temp Pulse Resp BP Pulse Ox 01/05/22 07:21 98.8 F 100 16 118/50 L 96 01/05/22 06:25 105 H 18 148/57 H 96 01/05/22 03:50 98.6 F 109 H 20 136/20 H 99 Intake & Output: Intake & Output 01/02/22 01/03/22 01/04/22 01/05/22 23:59 23:59 23:59 23:59 Intake Total 1850 1200 Output Total 860 450 Balance 990 750 - Lab Results Fish Bones: 01/05/22 05:17 01/04/22 08:31 Other Labs: Lab Results x24hrs 01/05/22 Range/Units 05:17 WBC 24.8 H (4.8-10.8) x10^3/uL RBC 2.78 L (4.20-5.40) 10^6/uL Hgb 7.6 L (12.0-16.0) g/dL Hct 23.0 L (37.0-47.0) % MCV 82.7 (81.0-99.0) fL MCH 27.3 (27.0-31.0) pg MCHC 33.0 (32.0-36.0) g/dL RDW 14.9 (12.0-15.0) % Plt Count 232 (130-450) 10^3/uL MPV 10.3 (7.9-10.8) fL Neut # (Auto) Not Reportable Lymph # (Auto) Not Reportable Wirt # (Auto) Not Reportable Eos # (Auto) Not Reportable Baso # (Auto) Not Reportable Absolute Nucleated RBC Not Reportable Total Counted 100 Band Neuts % (Manual) 9 (0 - 10) % Abnorm Lymph % (Manual) 0 % Nucleated RBC % Not Reportable Neutrophils # (Manual) 22.1 H (1.5-6.6) 10^3/uL Lymphocytes # (Manual) 1.7 (1.5-3.5) 10^3/uL Monocytes # (Manual) 0.7 (0.0-1.0) 10^3/uL Eosinophils # (Manual) 0.0 (0-0.7) 10^3/uL Basophils # (Manual) 0.2 H (0-0.1) 10^3/uL Differential Comment MANUAL DIFFERENTIAL Platelet Estimate NORMAL (130-450,000) (NORMAL) RBC Morph Micro Appear NORMAL APPEARANCE (NORMAL)
[2022-01-05] MEDS: IBUPROFEN 600 MG TABLET PO SCH ×2 (16:18→22:18)
[2022-01-05] MEDS: ALBUTEROL NEB 2.5 MG/3 ML INH PRN (19:19)
[2022-01-05] MEDS: oxyCODONE 5 MG TABLET PO PRN (22:18)
[2022-01-06] MEDS: LABETALOL 100 MG TABLET PO SCH (00:58)
[2022-01-06] MEDS: ACETAMINOPHEN 500 MG TABLET PO SCH ×3 (04:07→21:02)
[2022-01-06] MEDS: IBUPROFEN 600 MG TABLET PO SCH ×4 (04:07→22:56)
[2022-01-06] MEDS: ALBUTEROL NEB 2.5 MG/3 ML INH PRN (06:33)
[2022-01-06] MEDS: oxyCODONE 5 MG TABLET PO PRN ×4 (06:38→21:02)
[2022-01-06] MEDS: DOCUSATE SODIUM 100 MG CAPSULE PO SCH ×2 (10:06→21:02)
[2022-01-06] MEDS: SIMETHICONE CHEW 80 MG TABLET PO PRN ×2 (10:23→21:07)
--- NOTE | 2022-01-06 11:36 | PROVIDER PROGRESS NOTE ---
Subjective - Prog Note Date Prog Note Date: 01/06/22 - Subjective Pt reports feeling: Improved Subjective: Comfortable, pain controlled. Minimal lochia. Ambulating. Voiding. Positive BM. Tolerating regular diet. /pumping and bottle feeding. Mood is good. She reports shortness of breath has been ongoing for her especially during , this has been relieved with RT/albuterol treatment. Objective - Vital Signs/Intake & Output Vital Signs: Vital Signs x48h Temp Pulse Resp BP BP Pulse Ox 01/06/22 10:04 89 120/50 L 01/06/22 09:20 98.2 F 109 H 20 152/63 H 97 01/06/22 04:05 98.4 F 111 H 22 118/62 95 Intake & Output: Intake & Output 01/03/22 01/04/22 01/05/22 01/06/22 23:59 23:59 23:59 23:59 Intake Total 1850 1600 1100 Output Total 860 550 1 Balance 990 1050 1099 - Objective General Appearance: positive: No acute distress Respiratory: positive: No respiratory distress Cardiovascular: positive: Regular rate & rhythm Abdomen: positive: Other (soft, appropriately tender, incision c/d/i with steri strips, abdomen obese with edema which was present intrapartum) Skin: positive: Color nml Extremities: positive: Pedal edema (+3) Neurologic/Psychiatric: positive: Oriented x3 - Lab Results Fish Bones: 01/05/22 05:17 01/04/22 08:31 Other Labs: Lab Results x24hrs 01/06/22 Range/Units 04:48 POC Whole Bld Glucose 88 (70 - 100) mg/dL Assessment/Plan - Problem List (1) care following delivery Impression: 41yo s/p RCD 01/04 at 35.4d for PTL, POD#2 - GDMA2, fasting glucose 88. No longer taking medications. Discontinue BG monitoring. Follow up to evaluate for DM. - Preeclampsia. Discontinue labetalol, will monitor. Repeat labs in am. - SW consulted - Acute blood loss anemia. Expected post operatively. Iron infusion today. - Reevaluate for discharge tomorrow. still admitted as well. Routine care. (3) Pre-eclampsia Qualifiers: Trimester: unspecified trimester Qualified Code(s): O14.90 - Unspecified pre-eclampsia, unspecified trimester (4) Gestational diabetes mellitus Qualifiers: Gestational diabetes mellitus control: oral hypoglycemic-controlled
[2022-01-06] MEDS ORDERED: IRON DEXTRAN 1,000 MG in SODIUM CHLORIDE 0.9% 250 ML IV ONE (14:00)
[2022-01-07] MEDS: oxyCODONE 5 MG TABLET PO PRN ×2 (01:17→12:22)
[2022-01-07 05:16] LABS: HCT - HEMATOCRIT 22.8 % (37.0-47.0); HGB - HEMOGLOBIN 7.1 g/dL (12.0-16.0); MEAN CORPUSCULAR HEMOGLOBIN 27.1 pg (27.0-31.0); MEAN CORPUSCULAR HGB CONC 31.1 g/dL (32.0-36.0); MEAN PLATELET VOLUME 9.8 fL (7.9-10.8); RED BLOOD COUNT 2.62 10^6/uL (4.20-5.40); RED CELL DISTRIBUTION WIDTH 15.4 % (12.0-15.0); WHITE BLOOD COUNT 12.2 x10^3/uL (4.8-10.8)
[2022-01-07 05:25] LABS: ALBUMIN 2.2 g/dL (3.2-5.5); ALBUMIN/GLOBULIN RATIO 0.7 (1.0-2.2); BILIRUBIN,TOTAL 0.4 mg/dL (0.2-1.0); CALCIUM 7.9 mg/dL (8.5-10.3); CREATININE 0.6 mg/dL (0.4-1.0); POTASSIUM 4.2 mmol/L (3.5-5.0); TOTAL PROTEIN 5.4 g/dL (6.7-8.2); URIC ACID 4.8 mg/dL (2.6-7.2)
[2022-01-07] MEDS: ACETAMINOPHEN 500 MG TABLET PO SCH (05:26)
[2022-01-07] MEDS: IBUPROFEN 600 MG TABLET PO SCH ×2 (05:27→11:59)
[2022-01-07] MEDS: SIMETHICONE CHEW 80 MG TABLET PO PRN (12:02)
--- NOTE | 2022-01-07 12:24 | Discharge Plan ---
Discharge Plan Problem Reviewed?: Yes Disposition: Home, Self Care Condition: Good Prescriptions: oxyCODONE [Roxicodone] 5 mg PO Q6H PRN 3 Days #12 tab PRN Reason: Pain Diet: Regular Activity Restrictions: Activity as Tolerated (Pelvic rest until bleeding stops.) Shower Restrictions: No Driving Restrictions: No (May drive when comfortable and not taking oxycodone. ) Weight Bearing: Full Weight Instruction Topics: , Depression , Childbirth Breast Care No Smoking: If you smoke, Please STOP! Call for help. Follow-up with: Jacobo Rothman MD [Provider Admit Priv/Credential] -
--- NOTE | 2022-01-07 12:44 | Discharge Plan ---
Discharge Plan Problem Reviewed?: Yes Disposition: Home, Self Care Condition: Good Prescriptions: Furosemide [Lasix] 40 mg PO DAILY 5 Days #5 tab oxyCODONE [Roxicodone] 5 mg PO Q6H PRN 3 Days #12 tab PRN Reason: Pain Labetalol [Trandate] 300 mg PO Q8H 30 Days #90 tab Diet: Regular Activity Restrictions: Activity as Tolerated (Pelvic rest until bleeding stops.) Shower Restrictions: No Driving Restrictions: No (May drive when comfortable and not taking oxycodone. ) Weight Bearing: Full Weight Instruction Topics: Childbirth Breast Care, , Depression No Smoking: If you smoke, Please STOP! Call for help. Follow-up with: Jacobo Rothman MD [Provider Admit Priv/Credential] -
--- NOTE | 2022-01-07 12:52 | DISCHARGE SUMMARY ---
"Discharge Summary Admit Date: 01/04/22 Discharge Date: 01/07/22 Discharging Provider: Fatou Ramirez DO Code Status: Attempt Resuscitation Discharge Facility Name: - DIAGNOSES Admission Diagnoses: 1. labor 35.4w 2.Previous classical section x1 3. Preeclampsia without severe features 4. 35 weeks gestation 5. Lower extremity edema 6. Tobacco abuse 7. Cervical incompetence 8. Obesity BMI 44 9. 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 A2 GDM managed with oral antihyperglycemic's 12. GBS carrier Discharge Diagnoses with Status of Each Condition: 1. labor 35.4w - Delivered, discharged today as well 2.Previous classical section x1 3. Preeclampsia without severe features - Discharged with labetalol 300mg q8 and furosemide 40mg qd 4. 35 weeks gestation 5. Lower extremity edema 6. Tobacco abuse - Does not desire cessation at this time 7. Cervical incompetence 8. Obesity BMI 44 9. 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 A2 GDM managed with oral antihyperglycemic's - Follow up glucose testing 12. GBS carrier - CONSULTS | PROCEDURES Consultations: Anesthesia Procedures: Spinal Repeat section - HOSPITAL COURSE Hospital Course: 41yo presented to [facility] 01/04 in active labor at 35.4w. 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 She had a cerclage placed due to history of /previable deliveries. Also complicated by preeclampsia for which she was taking labetalol 100mg TID. GDMA2 treated with metformin. She has a history of a classical CD. She was unable to be transferred so she was brought to OR for RCD, see uncomplicated procedures. She recovered well postop. Acute blood loss anemia as expected post op and she received Infed 1000mg. BP initially decreased after delivered, labetalol was discontinued. However BP increased again and she was restarted on labetalol 300mg TID. She has significant LE edema, Lasix 40mg qd for 5d prescribed. Preeclampsia labs benign and she is asymptomatic. She is recovering appropriately and she and baby boy meet criteria for discharge POD#3. , postoperative, preeclampsia precautions reviewed, all questions answered. She will follow up in our office in 3d for BP and incision check. - ALLERGIES Allergies/Adverse Reactions: Allergies Allergy/AdvReac Type Severity Reaction Status Date / Time morphine Allergy Intermediate Hives Verified 01/02/22 18:38 Sulfa (Sulfonamide Allergy Intermediate Hives Verified 01/02/22 18:38 Antibiotics) adhesive AdvReac Rash Verified 01/05/22 17:55 latex AdvReac Rash Verified 01/05/22 17:55 - MEDICATIONS Home Medications: Ambulatory Orders Medication Instructions Recorded Confirmed Omeprazole [PriLOSEC] 20 mg PO DAILY 09/02/12 01/02/22 Omeprazole Magnesium 20 mg PO DAILY 01/02/22 01/02/22 Acetaminophen [Tylenol] 1,000 mg PO Q8H tab 01/07/22 Albuterol 2.5 mg INH RTQ4H PRN ml 01/07/22 Docusate Sodium 100Mg Capsule 100 mg PO BID cap 01/07/22 [Colace 100Mg Capsule] Furosemide [Lasix] 40 mg PO DAILY 5 Days #5 tab 01/07/22 Ibuprofen [Motrin] 600 mg PO Q6H tab 01/07/22 Labetalol [Trandate] 300 mg PO Q8H 30 Days #90 tab 01/07/22 oxyCODONE [Roxicodone] 5 mg PO Q6H PRN 3 Days #12 tab 01/07/22 - PHYSICAL EXAM AT DISCHARGE General Appearance: positive: No acute distress Cardiovascular: positive: Other (Regular rate) Abdomen: positive: Other (Soft, obese, appropriately tender, edema still present and starting to improve, incision c/d/i and steri strips removed as they were not adherent) Skin: positive: Color nml Extremities: positive: Pedal edema (+3 edema to upper legs) Neurologic/Psychiatric: positive: Oriented x3 - LABS Result Diagrams: 01/07/22 05:08 01/07/22 05:08 - QUALITY (Female Hip Fx Only) Was patient sent home on osteoporosis medication?: No - FOLLOW UP Follow Up: 3 days for BP and incision check - TIME SPENT Time Spent in Discharge (Minutes): 30"
[2022-01-07] MEDS ORDERED: LABETALOL 100 MG TABLET PO SCH (13:00)
[2022-01-07] MEDS ORDERED: FUROSEMIDE 40 MG TABLET PO SCH (13:00)
[2022-01-07 14:25] VITALS: BP 141/81
--- NOTE | 2022-01-07 14:46 | Labor Flowsheet ---
Labor Flowsheet Datetime Report Generated by CPN: 01/07/2022 14:46 Datetime: 01/04/2022 09:50 VITAL SIGNS Pulse: 99 SpO2 (%): 99 COMMUNICATION LaborFlag: OB Triage
--- NOTE | 2022-01-14 19:43 | PROCEDURE REPORT ---
- HPI Diagnosis/Indication for NST: Gestational Hypertension Current EDU 02/04/22 Gestation 35 Weeks and 4 Days 6 Para 5 Vital Signs Heart Rate 82 01/04/22 08:19 Respiratory Rate 18 01/04/22 08:19 Blood Pressure 155/90 H 01/04/22 08:19 O2 Saturation 97 01/04/22 08:19 Temperature 98.2 F 01/07/22 12:30 Heart Rate 88 01/07/22 12:30 Respiratory Rate 18 01/07/22 12:30 Blood Pressure 141/81 H 01/07/22 13:00 O2 Saturation 100 01/07/22 08:44 If not protocol: Oxygen Flow, liters/minute - NST Procedure NST Procedure Start Date 01/04/22 Start Time 08:12 Stop Time 08:45 Vibroacoustic Stimulation Used No Patient States Movement Yes - Results and Plan Findings/Impression: Patient is a 41-year-old -4-1-1 at 35 weeks 4 days gestation here for contractions. NST Performed 01/04/2022 NST Read 9 05/17/2021 FHT:135 bpm baseline, moderate variability, accelerations preent, no decelerations. Category 1 [place]:Every 5-6 minutes Diagnosis 35 weeks gestation Preeclampsia Previous low transverse section Cervical cerclage Cervical insufficiency We will try to transfer patient or plan for admit for labor.
== END 2022-01-07 14:00 | disposition home or self-care (01) | DRG 786 ==
LOC: WFO 08:10 → FBP 08:12 → WFO 09:25 → FBP 09:26
PROVIDERS: ADMIT Obstetrics & Gynecology; ATTEND Obstetrics & Gynecology
PROC: 0UCC0ZZ Extirpation of Matter from Cervix, Open Approach (ICD-10-PCS; 2022-01-04)
PROC: 10D00Z1 Extraction of Products of Conception, Low, Open Approach (ICD-10-PCS; principal; 2022-01-04 10:00)
DX: O60.14X0 Preterm labor third trimester with preterm delivery third trimester, not applicable or unspecified (principal); O34.33 Maternal care for cervical incompetence, third trimester; O98.52 Other viral diseases complicating childbirth; D62 Acute posthemorrhagic anemia; O14.04 Mild to moderate pre-eclampsia, complicating childbirth; O99.214 Obesity complicating childbirth; A60.04 Herpesviral vulvovaginitis; O24.425 Gestational diabetes mellitus in childbirth, controlled by oral hypoglycemic drugs; O99.824 Streptococcus B carrier state complicating childbirth; O90.81 Anemia of the puerperium; O34.212 Maternal care for vertical scar from previous cesarean delivery; O99.334 Smoking (tobacco) complicating childbirth; Z20.822 Contact with and (suspected) exposure to COVID-19; Z3A.35 35 weeks gestation of pregnancy; Z37.0 Single live birth; Z79.84 Long term (current) use of oral hypoglycemic drugs
CPT/HCPCS: 36415; 59025; 80053; 82570; 84112; 84156; 84550; 85025; 85027; 86850; 86900; 86901; 87635; 94640; A9270; J1170; J1750; J2795; J7040; J7120; 99215

== ENCOUNTER 2022-02-14 15:29 | Outpatient (CLI) | payer MEDICAID ==
[2022-02-14 21:05] LABS: ESTIMATED AVERAGE GLUCOSE 108 mg/dL (70-100); HEMOGLOBIN A1c% 5.4 % (4.27-6.07)
== END 2022-02-14 15:30 | disposition home or self-care (01) ==
LOC: LAB 15:29
PROVIDERS: ATTEND Nurse Practitioner
DX: O24.419 Gestational diabetes mellitus in pregnancy, unspecified control (principal)
CPT/HCPCS: 36415; 83036

== ENCOUNTER 2022-02-28 14:46 | Outpatient (CLI) | payer MEDICAID ==
--- NOTE | 2022-03-01 11:10 | Ultrasound Report ---
PROCEDURE: Duplex Ext Veins Left INDICATIONS: LEFT LEG EDEMA TECHNIQUE: Real-time imaging, as well as color and pulse Doppler interrogation, were performed of the lower extr emity deep veins from the inguinal ligament to the popliteal fossa. COMPARISON: None. FINDINGS: The deep veins are normally compressible, and free of intraluminal thrombus. Color and pu lse Doppler demonstrate normal phasic intraluminal flow. There is normal augmentation response to di stal compression maneuver. IMPRESSION: No DVT in the left lower extremity Reviewed by: Odilon Jung on 03/01/2022 11:[address] [facility] Approved by: Odilon Jung on 03/01/2022 11:[address] [facility] Station ID: [id number]
== END 2022-02-28 14:47 | disposition home or self-care (01) ==
LOC: DI 14:46
PROVIDERS: ATTEND Nurse Practitioner
DX: R60.0 Localized edema (principal)

== ENCOUNTER 2022-05-04 12:33 | Outpatient (CLI) | payer MEDICAID ==
--- NOTE | 2022-05-04 16:29 | Ultrasound Report ---
PROCEDURE: Ext Limited Non Vascular INDICATIONS: SWELLING LEFT LEG TECHNIQUE: Real-time scanning was performed of the left gluteal region, with image documentation. COMPARISON: None. FINDINGS: Focused ultrasound examination in left gluteal region and posterior upper thigh at patient 's reported area of pain shows no discrete soft tissue mass or fluid collection. No abnormally enlarg ed lymph nodes. IMPRESSION: No abnormality is seen to account for patient's symptoms. Reviewed by: Hamzah Jaramillo MD on 05/04/2022 4:28 PM PST Approved by: Hamzah Jaramillo MD on 05/04/2022 4:28 PM PST Station ID: [id number]
== END 2022-05-04 12:34 | disposition home or self-care (01) ==
LOC: DI 12:33
PROVIDERS: ATTEND Obstetrics & Gynecology
DX: R22.42 Localized swelling, mass and lump, left lower limb (principal)